=== PATIENT | male | born 1980 | race Caucasian/White ===

== ENCOUNTER 2024-04-22 12:23 | Emergency (ER) | payer BC, SELFPAY ==
--- NOTE | ~2024-04-22 | XR_ITS ---
EXAMINATION: XR chest 2V DATE: 04/22/2024 14:32 INDICATION: Cough and shortness of breath. TECHNIQUE: Frontal and lateral views of the chest were obtained. COMPARISON: Chest 2 views 07/01/2015 FINDINGS: There are airspace opacities in right lower lung zone. A calcified right lung nodule is con sistent with old granulomatous disease. No pleural effusion or pneumothorax. The heart size is normal . IMPRESSION: 1. Airspace opacities in right lower lung zone, consistent with atelectasis versus pneumonia. Reviewed, dictated and finalized at location A. IMPRESSION: 1. Airspace opacities in right lower lung zone, consistent with atelectasis eliazar rupa pneumonia.
[2024-04-22 12:37] VITALS: BP 150/86; PULSE 86; RESP 20; TEMP 36.6; O2SAT 97
[2024-04-22 14:11] VITALS: PULSE 82; RESP 16
[2024-04-22] MEDS: IPRATROPIUM 0.5 MG/ALBUTEROL SULFATE 2.5 MG AMPUL.NEB 3 ML INHALATION (14:11)
--- NOTE | 2024-04-22 14:16 | ED.URI ---
HPI - URI/Sore Throat General Chief Complaint: Upper Respiratory Infection Stated Complaint: cold symptoms, fever, sob Time Seen by Provider: 04/22/24 13:46 History of Present Illness HPI Narrative: Pt presents with fever and cough. Pt has been on amoxil fro 4 days but is getting worse. Fever up to 102 and cough worse. Related Data Allergies Allergy/AdvReac Type Severity Reaction Status Date / Time No Known Allergies Allergy Verified 04/22/24 14:06 Review of Systems Review of Systems: All systems reviewed & are unremarkable except as noted in HPI and below PMFSH Family History Family History Grandparent Hypertension Other Family history of heart disease in male family member before age 55 Family history of malignant neoplasm of breast Malignant neoplasm of prostate Social History Social History Smoking status: Never smoker Alcohol intake: never Exam Const: General: healthy appearing and no acute distress Nutritional Appearance: well nourished Orientation/consciousness: patient oriented x3 Limitations: no limitations Eyes: Conjunctivae: conjunctivae normal EOM: EOMs intact bilaterally Neck: Neck: normal visual inspection, no lymphadenopathy and no meningeal signs Chest: Chest palpation & inspection: normal inspection of the chest Resp: Auscultation: rales on the right Cardio: Rate: regular rate Rhythm: regular rhythm GI: GI Palp: Yes Soft to palpation and No Tenderness to palpation present (GI) Auscultation: normal bowel sounds Skin: General skin exam: normal color Rashes: no rashes Neuro: General: patient oriented x3, moves all extremities, no meningeal signs, no focal motor deficits and CN's II-XI intact bilaterally Speech: normal speech Extrem: General: normal to inspection and no clubbing, cyanosis or edema Psych: Mental Status: mental status grossly normal Affect: normal affect Attitude: cooperative Course Vital Signs Vital signs: Vital Signs Temperature 97.9 F 04/22/24 12:37 Pulse Rate 86 04/22/24 12:37 Respiratory Rate 20 04/22/24 12:37 Blood Pressure 150/86 H 04/22/24 12:37 Pulse Oximetry 97 04/22/24 12:37 Oxygen Delivery Room Air 04/22/24 12:37 Temperature 97.9 F 04/22/24 12:37 Pulse Rate 78 04/22/24 18:33 Respiratory Rate 17 04/22/24 18:33 Blood Pressure 122/78 04/22/24 18:33 Pulse Oximetry 98 04/22/24 18:33 Oxygen Delivery Room Air 04/22/24 14:18 MDM - URI/Sore Throat MDM Narrative Medical decision making narrative: pt presents with persistent fever and cough not responsive to antibiotic. will check some labs and cxr and swab for flu and covid and rsv and give neb. Differential Diagnosis Differential diagnosis: Likely upper respiratory infection, viral infection, bronchitis, influenza and other (pneumonia) Lab Data 04/22/24 14:20 04/22/24 14:20 Labs: Lab Results 04/22/24 04/22/24 Range/Units 14:20 15:14 WBC 10.6 H (4.5-10.0) K/mm3 RBC 4.72 (4.6-6.20) M/mm3 Hgb 14.3 (14.0-18.0) g/dL Hct 42.4 (42.0-52.0) % MCV 89.8 (80-100) fl MCH 30.3 (26-34) pg MCHC 33.7 (32-36) g/dl RDW 12.2 (11.5-14.5) % Plt Count 334 (150-375) k/mm3 MPV 10.0 (7.4-10.4) fl Immature Gran % (Auto) 0.4 (0-0.5) % Neut % (Auto) 64.5 (45.5-73.1) % Lymph % (Auto) 21.2 (18.3-44.2) % Converse % (Auto) 10.7 H (2.6-8.5) % Eos % (Auto) 2.4 (0-4.4) % Baso % (Auto) 0.8 (0.2-1.2) % Lymph # (Auto) 2.24 (0.9-3.2) K/mm3 Converse # (Auto) 1.1 H (0.1-0.6) K/mm3 Eos # (Auto) 0.3 (0-0.3) K/mm3 Baso # (Auto) 0.1 (0.0-0.1) K/mm3 Abs Immat Gran (auto) 0.04 H (0.00-0.031) K/mm3 Absolute Neuts (auto) 6.8 H (1.3-6.7) K/mm3 Absolute Nucleated RBC 0.000 (0.0-0.012) K/mm3 Nucleated RBC % 0.0 (0.0-0.2) % PT 13.2 (11.1-14.7)
[2024-04-22 14:18] VITALS: BP 123/90; PULSE 85; RESP 19; O2SAT 98
[2024-04-22 14:21] VITALS: PULSE 80; RESP 20
[2024-04-22 14:31] LABS: Basophils Absolute Auto 0.1 K/mm3 (0.0-0.1); Basophils Percent Auto 0.8 % (0.2-1.2); Eosinophils Absolute Auto 0.3 K/mm3 (0-0.3); Eosinophils Percent Auto 2.4 % (0-4.4); Hematocrit 42.4 % (42.0-52.0); Hemoglobin 14.3 g/dL (14.0-18.0); Immature Granulocyte Absolute 0.04 K/mm3 (0.00-0.031); Immature Granulocyte Percent A 0.4 % (0-0.5); Lymphocytes Absolute Auto 2.24 K/mm3 (0.9-3.2); Lymphocytes Percent Auto 21.2 % (18.3-44.2); Mean Corpuscular HGB Conc 33.7 g/dl (32-36); Mean Corpuscular Hemoglobin 30.3 pg (26-34); Mean Corpuscular Volume 89.8 fl (80-100); Monocytes Absolute Auto 1.1 K/mm3 (0.1-0.6); Monocytes Percent Auto 10.7 % (2.6-8.5); Neutrophils Absolute Auto 6.8 K/mm3 (1.3-6.7); Neutrophils Percent Auto 64.5 % (45.5-73.1); Platelet Count Result 334 k/mm3 (150-375); Red Blood Count 4.72 M/mm3 (4.6-6.20); Red Cell Distribution Width 12.2 % (11.5-14.5); White Blood Count 10.6 K/mm3 (4.5-10.0)
[2024-04-22 14:37] LABS: Lactic Acid Reflex 1.1 mmol/L (0.7-2.0)
[2024-04-22 14:41] LABS: Prothrombin Time 13.2 Seconds (11.1-14.7)
[2024-04-22 14:42] LABS: Partial Thromboplastin Time 26.6 Seconds (22.3-36.8)
[2024-04-22 14:56] LABS: Alanine Aminotransferase 46 U/L (6-50); Albumin Level 4.5 g/dL (3.5-5.1); Alkaline Phosphatase 64 U/L (38-126); Anion Gap 9 mmol/L (4-12); Aspartate Amino Transferase 48 U/L (17-59); Bilirubin,Total 0.4 mg/dL (0.2-1.3); Blood Urea Nitrogen 6 mg/dL (9-20); CRP 15.8 mg/dL (<1.0); Calcium 9.1 mg/dL (8.4-10.2); Carbon Dioxide 29 mmol/L (22-30); Chloride 102 mmol/L (98-107); Estimated CRCL calculation 104 ml/min; Estimated Glomerular Filt Rate > 60; Glucose 110 mg/dL (65-110); Potassium 3.7 mmol/L (3.4-5.0); Sodium 140 mmol/L (137-145)
[2024-04-22 16:01] LABS: Influenza A QL RT-PCR Negative (Negative); Influenza B QL RT-PCR Negative (Negative); RSV RNA, RT-PCR Negative (Negative); SARS-CoV-2 RNA PCR Negative (Negative)
[2024-04-22] MEDS: levoFLOXacin 750 MG/D5W 150 ML 750 MG/150 ML BAG 100 MG IVPB (16:47)
[2024-04-22 16:55] VITALS: PULSE 82; RESP 16; O2SAT 100
[2024-04-22 18:33] VITALS: BP 122/78; PULSE 78; RESP 17; O2SAT 98
== END 2024-04-22 18:34 | disposition home or self-care (01) ==
PROVIDERS: Emergency Provider Emergency Medicine; PCP Family Medicine
DX: J18.9 Pneumonia, unspecified organism (principal); Z20.822 Contact with and (suspected) exposure to COVID-19
CPT/HCPCS: 36415; 71046; 80053; 83605; 85025; 85610; 85730; 86140; 87040; 87637; 94640; 96365; 99284; J1956

== ENCOUNTER 2024-07-06 10:51 | Emergency (ER) | payer BC, SELFPAY ==
[2024-07-06 11:04] VITALS: BP 148/76; PULSE 84; RESP 18; TEMP 36.3; O2SAT 99
--- NOTE | 2024-07-06 11:49 | ED_ITS ---
HPI - Skin/Abscess/Foreign Bdy General Chief complaint: Wound/Laceration Stated complaint: wound Time Seen by Provider: 07/06/24 11:05 History of Present Illness HPI narrative: 44-year-old male presenting with concerns for abscess. States that he has been getting abscesses for the last several months. They have resolved with drainage and antibiotic ointment. He now has 1 on the back of his left calf and and feels that his lasted longer than the others. States that it is actually feeling better today. States that it was a lot more painful the last several days. States that it has been draining. No further complaints. Related Data Allergies Allergy/AdvReac Type Severity Reaction Status Date / Time No Known Allergies Allergy Verified 07/06/24 10:52 Review of Systems Review of Systems: All systems reviewed & are unremarkable except as noted in HPI and below PMFSH Family History Family History Grandparent Hypertension Other Family history of heart disease in male family member before age 55 Family history of malignant neoplasm of breast Malignant neoplasm of prostate Social History Social History Smoking status: Never smoker Alcohol intake: never Exam Narrative: GENERAL: Nontoxic, in no acute distress, pleasant and cooperative HEAD: Normocephalic, atraumatic. EYES: PERRLA and EOMI. ENT: Grossly unremarkable NECK: Supple. CHEST: No respiratory distress. HEART: Regular rate and rhythm EXTREMITIES: superficial abscess posterior left calf with purulent drainage and surrounding cellulitis SKIN: Warm, dry, as above NEURO: No focal deficits. Alert and oriented x3. PSYCH: Normal mood and affect. Course Vital Signs Vital signs: Vital Signs Temperature 97.4 F L 07/06/24 11:04 Pulse Rate 84 07/06/24 11:04 Respiratory Rate 18 07/06/24 11:04 Blood Pressure 148/76 H 07/06/24 11:04 Pulse Oximetry 99 07/06/24 11:04 Temperature 97.4 F L 07/06/24 11:04 Pulse Rate 84 07/06/24 11:04 Respiratory Rate 18 07/06/24 11:04 Blood Pressure 148/76 H 07/06/24 11:04 Pulse Oximetry 99 07/06/24 11:04 MDM - Skin/Abscess/Foreign Bdy [facility] Narrative Medical decision making narrative: 44-year-old male presenting with an abscess on his left leg. Vitals are stable. Exam remarkable for the above. Appears of a superficial abscess, it is spontaneously draining. Patient started on Keflex and doxycycline for the surrounding cellulitis. Discussed appropriate supportive care and close follow- up. Appropriate return precautions given. He is agreeable this plan. Discharged in stable condition. Differential Diagnosis Differential diagnosis: Likely abscess of skin or subcutaneous tissue and cellulitis Medical Records Attestation: I reviewed the patient's medical records. Critical Care Time Critical Care Time Critical Care Time: No Discharge Plan Discharge Clinical Impression: Abscess, Cellulitis Patient Disposition: Home, Self-Care Condition: Stable Instructions: Antibiotic Form, Cellulitis (ED), Abscess (ED) Additional Instructions: Please complete the antibiotics as prescribed. Please apply warm compresses to continue to encourage drainage. Follow-up closely with primary care. If your symptoms worsen or other concerning symptoms arise, please return to the ER. Patient Language: Slovenian Prescriptions: New cephalexin 500 mg capsule 500 mg PO Q6H 7 Days Qty: 28 0RF doxycycline hyclate 100 mg tablet 100 mg PO BID 7 Days Qty: 14 0RF No Action ondansetron HCl [Zofran] 4 mg tablet 4 mg PO Q8H PRN (Reason: nausea and vomiting) Qty: 30 0RF levofloxacin 750 mg tablet 750 mg PO DAILY Qty: 10 0RF albuterol sulfate 90 mcg/actuation aerosol powdr breath activated 2 inh inhalation QID PRN (Reason: shortness of breath) Qty: 1 0RF Follow-up/Referrals: Dr. Tee [Other] Jm Oneil MD [Primary Care Provider] -
[2024-07-06] MEDS: CEPHALEXIN 500 MG CAPSULE PO (12:09)
[2024-07-06] MEDS: DOXYCYCLINE HYCLATE 100 MG TABLET PO (12:10)
--- OUTSIDE RECORDS SUMMARY | 2024-07-10 06:37 | XMS_ITS | Clinical Summary ---
Author Organization [facility] Address [address] [address] Care Team Providers Care Editing Intern Name Role Phone Jm Oneil MD Primary Care Provider [phone] [facility] [place] [facility] and Associated Physician Practices is amultiple site organization consisting of ambulatory clinics and hospital sitesin [place], [place], [place] and [place]. This disclosure is being madepursuant to the Care Everywhere program and may not contain all information available regarding this patient. Last updated 18.[facility] Allergies No known active allergies Medications Be aware that medications may not be up to date on this document. Always verify current medications with the patient. No known medications Family History Medical History Relation Name Comments Cancer Paternal Grandfather stomach ? Relation Name Status Comments Paternal Grandfather Social History Tobacco Use Types Packs/Day Years Used Date Smoking Tobacco: Never Smokeless Tobacco: Never Alcohol Use Standard Drinks/Week Comments No 0 (1 standard drink = 0.6 oz pur e alcohol) Sex and Gender Information Value Date Recorded Sex Assigned at Not on file Gender Identity Not on file Sexual Orientation Not on file Last Filed Vital Signs Vital Sign Reading Time Taken Comments Blood Pressure - - Pulse - - Temperature - - Respiratory Rate - - Oxygen Saturation - - Inhaled Oxygen Concentration - - Weight 90.7 kg (200 lb) 04/29/2016 6:25 AM CDT Height 185.4 cm (6' 1 ) 04/29/2016 6:25 AM CDT Body Mass Index 26.39 04/29/2016 6:25 AM CDT Plan of Treatment Health Maintenance Due Date Last Done Comments HIV SCREENING 01/23/1995 HEPATITIS C SCREENING 01/19/1998 DTAP/TDAP/TD VACCINES (1 - Tdap) 01/23/1999 HEPATITIS B VACCINE (1 of 3 - 19+ 3-dose series) 01/23/1999 LIPID TESTING 04/29/2021 04/29/2016 DEPRESSION SCREENING 07/24/2023 COVID-19 VACCINE (1 - 2023-2 5 season) 2024 INFLUENZA VACCINE (#1) 2024 ZOSTER VACCINE (1 of 2) 01/23/2030 HIB VACCINE Aged Out No longer eligi ble based on patient's age to complete this topic HPV VACCINE Aged Out No longer eligi ble based on patient's age to complete this topic MENINGOCOCCAL VACCINE Aged Out No christin marco eligible based on patient's age to complete this topic PNEUMOCOCCAL VACCINE Aged Out No long er eligible based on patient's age to complete this topic Procedures Procedure Name Priority Date/Time Associated Diagnosis Comments LIPID PROFILE Routine 04/29/2016 6:10 AM CDT Abdominal pain, unspecified location from Last 3 Months or Most Recently Relevant to Health Maintenance Results * (ABNORMAL) LIPID PROFILE (04/29/2016 6:10 AM CDT) [facility] Cholesterol 154 <200 mg/dL 04/29/2016 7:07 AM CDT [facility] Triglycerides 168(H) <150 mg/dL 04/29/2016 7:07 AM CDT [facility] HDL Cholesterol 33(L) >40 mg/dL 04/29/2016 7:07 AM CDT [facility] LDL Calculated 87 <130 mg/dL 04/29/2016 7:07 AM CDT [facility] VLDL Calculated 34(H) <=30 mg/dL 04/29/2016 7:07 AM CDT [facility] Chol HDL Ratio 4.7(H) <4.5 04/29/2016 7:07 AM CDT [facility] LDL/HDL Ratio 2.6 <5.0 04/29/2016 7:07 AM CDT [facility] Blood BLOOD SPECIMEN / Unknown Lab Venipuncture / Unknown 04/29/2016 6:10 AM CDT 04/29/2016 6:31 AM CDT Everardo Weiss MD LAB - CHEMISTRY O RDERABLES [facility] [address] [place] [address] from Last 3 Months or Most Recently Relevant to Health Maintenance Care Teams Editing Intern Relationship Specialty Start Date End Date Jm Oneil MD PCP - General Family Medicine 04/27/16
--- OUTSIDE RECORDS SUMMARY | 2024-07-10 06:37 | XMS_ITS | Clinical Summary ---
Author Organization [facility] Address [address], [facility] [address] [place] [address] Phone Care Team Providers Care Air Conditioning Mechanic Name Role Phone Kashif Montgomery MD Unavailable [phone] Jm Oneil MD Primary Care Provider [phone] Allergies Active Allergy Reactions Criticality Noted Date Comments Other Other (see Comments) 08/25/2016 SEASONAL ALLERGIES GRASS, MOLD, ETC Medications HYDROcodone-acet aminophen (NORCO) 5-325 MG Tablet Take 1-2 Tabs by mouth every 6 hours as needed. 40 Tab 0 09/02/2016 Active docusate sodium (COLACE) 100 MG Capsule Take 1 Cap by mouth 2 times daily as needed for Constipatio n. 60 Cap 3 09/02/2016 Active Active Problems Problem Noted Date Diagnosed Date Delayed gastric emptying 08/22/2016 Family History Medical History Relation Name Comments Hypertension Maternal Grandmother Hypertension Mother Cancer Paternal Grandfather Relation Name Status Comments Father Alive Maternal Grandmother Mother Alive Paternal Grandfather Social History Tobacco Use Types Packs/Day Years Used Date Smoking Tobacco: Never Smokeless Tobacco: Never Alcohol Use Standard Drinks/Week Comments No 0 (1 standard drink = 0.6 oz pur e alcohol) Sex and Gender Information Value Date Recorded Sex Assigned at Not on file Legal Sex Male 9:37 PM CDT Gender Identity Not on file Sexual Orientation Not on file Last Filed Vital Signs Vital Sign Reading Time Taken Comments Blood Pressure 120/80 09/02/2016 1:10 PM WAREHOUSE DELIVERY MANAGER Pulse 74 09/02/2016 1:10 PM WAREHOUSE DELIVERY MANAGER Temperature 35.6 ??C (96.1 ??F) 09/02/2016 1:10 PM CS T Respiratory Rate 16 09/02/2016 1:10 PM WAREHOUSE DELIVERY MANAGER Oxygen Saturation 97% 09/02/2016 1:10 PM WAREHOUSE DELIVERY MANAGER Inhaled Oxygen Concentration - - Weight 88.5 kg (195 lb) 08/25/2016 1:00 PM WAREHOUSE DELIVERY MANAGER Height 185.4 cm (6' 1 ) 08/25/2016 1:00 PM WAREHOUSE DELIVERY MANAGER Body Mass Index 25.73 08/25/2016 1:00 PM WAREHOUSE DELIVERY MANAGER Plan of Treatment Health Maintenance Due Date Last Done Comments Hepatitis C Virus (HCV) Screening 1980 TdaP Immunization 1980 Hepatitis B Immunization (1 of 3 - 19+ 3-dose series) 01/23/1999 Influenza Immunization (#1) 2024 SARS-COV-2 Immunization ( - season) 2024 Respiratory Syncytial Virus (RSV) Immunization (Adult) (1 - 1-dose 75+ series) 01/23/2055 Meningococcal Immunization (ACWY) Aged Out No longer eligible based on patient's age to complete this topic Pneumococcal Immunization Combined Aged Out No longer eligible based on patient's age to complete this topic Rotavirus Immunization Aged Out No lo nger eligible based on patient's age to complete this topic Care Teams Air Conditioning Mechanic Relationship Specialty Start Date End Date Jm Oneil MD [address] [place] [address] PCP - General Family Medicine 08/11/16 Kashif Montgomery MD [address] [address] General Surgery 08/10/16
--- OUTSIDE RECORDS SUMMARY | 2024-07-10 06:37 | XMS_ITS | Encounter Summary ---
Author Organization [facility] Address [address] [address] Care Team Providers Care Electrical And Instrumentation Manager Name Role Phone Jm Oneil MD Primary Care Provider [phone] Reason for Visit * Auth/Cert Specialty Diagnoses / Procedures Referred By Sahil jeong Referred To Contact Diagnoses Abdominal bloating Abdominal bloating Procedures BREATH HYDROGEN TEST Referral ID Status Reason Start Date Expiration Date Visits Re quested Visits Authorized [id number] 1 1 Encounter Details Date Type Department Care Team (Late st Contact Info) Description 04/29/2016 6:30 AM CDT - 04/29/2016 7:00 AM CDT Surgery [facility] [address] [place] [id number] Procedure, Nursing G_I BREATH HYDROGEN TEST FOR LACTULOSE Surgery Details Date/Time Status Location OR Service Patient Class Case Class Case Type Trauma Case? 04/29/2016 6:30 AM Posted [facility] GI Lab Gastroenterology Surgery Day Care Elective > 5 days Panel 1 Procedure LRB Anes Op Region Wound Class Comments BREATH HYDROGEN TEST FOR LACTULOSE None Clean Contaminated Surgeon Surgeon Role Service Panel Procedure, Nursing G_I Primary Gastroenterology [address] RILEY'S REQUEST documented in this encounter Social History Tobacco Use Types Packs/Day Years Used Date Smoking Tobacco: Never Smokeless Tobacco: Never Alcohol Use Standard Drinks/Week Comments No 0 (1 standard drink = 0.6 oz pur e alcohol) Sex and Gender Information Value Date Recorded Sex Assigned at Not on file Gender Identity Not on file Sexual Orientation Not on file documented as of this encounter Last Filed Vital Signs Vital Sign Reading Time Taken Comments Blood Pressure - - Pulse - - Temperature - - Respiratory Rate - - Oxygen Saturation - - Inhaled Oxygen Concentration - - Weight 90.7 kg (200 lb) 04/29/2016 6:25 AM CDT Height 185.4 cm (6' 1 ) 04/29/2016 6:25 AM CDT Body Mass Index 26.39 04/29/2016 6:25 AM CDT documented in this encounter Functional Status Functional Status Response Date of Assess ment Is person deaf or have serious hearing difficult y? No 04/29/2016 Is person blind or have serious difficulty seein g? No 04/29/2016 Does person have serious dif ficulty walking/climbing stairs? No 04/29/2016 Does person have difficulty dressing/bathing? No 04/29/2016 Does person have difficulty doing errands alone? No 04/29/2016 Cognitive Status Response Date of Assessm ent Does person have difficulty concentrating/remembering/making decisions? No 04/29/2016 documented as of this encounter Plan of Treatment Scheduled Orders Name Type Priority Associated Diagnoses Orde r Schedule HYDROGEN BREATH TEST GI Routine ONCE for 1 Occurrences starting 04/29/2016 until 04/29/2016 documented as of this encounter Procedures Procedure Name Priority Date/Time Associated Diagnosis Comments BREATH HYDROGEN/METHANE TEST 04/29/2016 6:18 AM CDT Abdominal bloating Special Needs PER DR. RILEY'S REQUEST documented in this encounter Visit Diagnoses Diagnosis Abdominal bloating Flatulence, eructation, and gas pain documented in this encounter Care Teams Electrical And Instrumentation Manager Relationship Specialty Start Date End Date Jm Oneil MD PCP - General Family Medicine 04/27/16 documented as of this encounter
--- OUTSIDE RECORDS SUMMARY | 2024-07-10 06:37 | XMS_ITS | Patient Health Summary ---
Author Organization [facility] [employer] Address [address] [place] [address] Care Team Providers Care Warp Knitter Helper Name Role Phone Jm Oneil MD Primary Care Provider [phone] Note from [facility] [employer] [facility] [employer],non-owned Affiliates and Associated Physician Practices is amultiple site organization consisting of ambulatory clinics and hospital sitesin [place], [place], [place] and [place]. This disclosure is being madepursuant to the Care Everywhere program and may not contain all information available regarding this patient. Last updated 18.[facility] [employer] Allergies No known active allergies Medications Be aware that medications may not be up to date on this document. Always verify current medications with the patient. No known medications Social History Tobacco Use Types Packs/Day Years [...] Mass Index 26.39 04/29/2016 6:25 AM CDT Procedures * BREATH HYDROGEN/METHANE TEST(Performed 04/29/2016) Performed for Abdominal bloating * TSH(Performed 04/29/2016) Performed for Abdominal pain, unspecified location * T4 TOTAL(Performed 04/29/2016) Performed for Abdominal pain, unspecified location * C-REACTIVE PROTEIN(Performed 04/29/2016) Performed for Abdominal pain, unspecified location * LIPID PROFILE(Performed 04/29/2016) Performed for Abdominal pain, unspecified location * COMPREHENSIVE METABOLIC PANEL(Performed 04/29/2016) Performed for Abdominal pain, unspecified location * CBC W AUTO DIFFERENTIAL(Performed 04/29/2016) Performed for Abdominal pain, unspecified location Results * (ABNORMAL) C-REACTIVE PROTEIN (04/29/2016 6:10 AM CDT) [facility] C-Reactive Protein 0.62(H) <0.30 mg/dL 04/29/2016 7:07 AM CDT [facility] Blood BLOOD SPECIMEN / Unknown Lab Venipuncture / Unknown 04/29/2016 6:10 AM CDT 04/29/2016 6:31 AM CDT Everardo Weiss MD LAB - CHEMISTRY O RDERABLES Performing Organization Address [facility]/State/[facility] Co de Phone Number [facility] [address] [place] [address] * (ABNORMAL) CBC W AUTO DIFFERENTIAL (04/29/2016 6:10 AM CDT) [facility] WBC 8.5 4.4 - 10.7 x10E9/L 04/29/2016 6:43 AM CDT [facility] WBC Corrected x10E9/L 04/29/2016 6:43 AM CDT [facility] RBC 5.26 3.80 - 5.40 x10E12/L 04/29/2016 6:43 AM CDT [facility] Hemoglobin 15.2 12.0 - 17.6 gm/dL 04/29/2016 6:43 AM CDT [facility] Hematocrit 45.4 35.2 - 51.7 % 04/29/2016 6:43 AM CDT [facility] MCV 86.3 80.7 - 98.3 fl 04/29/2016 6:43 AM CDT [facility] MCH 28.9 26.7 - 34.0 pg 04/29/2016 6:43 AM CDT [facility] MCHC 33.5 30.8 - 35.9 gm/dL 04/29/2016 6:43 AM CDT [facility] Platelet Count 319 153 - 416 x10E9/L 04/29/2016 6:43 AM T [facility] RDW-CV 12.5 12.1 - 14.9 % 04/29/2016 6:43 AM T [facility] MPV 10.5 9.4 - 12.9 fl 04/29/2016 6:43 AM [facility] Neutrophils % 47.9 44.0 - 73.0 % 04/29/2016 6:43 AM [facility] Lymphocytes % 37.2 20.0 - 43.0 % 04/29/2016 6:43 AM [facility] Monocytes % 10.7 5.0 - 13.0 % 04/29/2016 6:43 AM [facility] Eosinophils % 2.7 0.0 - 6.0 % 04/29/2016 6:43 AM [facility] Basophils % 1.1 0.0 - 2.0 % 04/29/2016 6:43 AM [facility] Immature Granulocytes 0.4 0 - 1 % 04/29/2016 6:43 AM [facility] Neutrophil Absolute 4.07 2.01 - 7.14 x10E9/L 04/29/2016 6:43 AM [facility] Lymphocytes Absolute 3.16 1.07 - 3.94 x10E9/L 04/29/2016 6:43 AM T [facility] Monocytes Absolute 0.91 0.26 - 1.07 x10E9/L 04/29/2016 6:43 AM [facility] Eosinophils Absolute 0.23 0 - 0.47 x10E9/L 04/29/2016 6:43 AM [facility] Basophils Absolute 0.09(H) 0 - 0.08 x10E9/L 04/29/2016 6:43 AM [facility] Immature Granulocytes Absolute 0.03 0.00 - 0.06 x10E9/L 04/29/2016 6:43 AM [facility] nRBC Auto 0 /100 WBC 04/29/2016 6:43 AM [facility] Blood BLOOD SPECIMEN / Unknown Lab Venipuncture / Unknown 04/29/2016 6:10 AM CDT 04/29/2016 6:31 AM CDT Everardo Weiss MD LAB - HEMATOLOGY ORDERABLES [facility] [address] [phone] * COMPREHENSIVE METABOLIC PANEL (04/29/2016 6:10 AM CDT) Glucose 94 74 - 106 mg/dL 04/29/2016 7:07 AM CDT [facility] Sodium 138 136 - 145 mmol/L 04/29/2016 7:07 AM CDT [facility] Potassium 3.9 3.5 - 5.1 mmol/L 04/29/2016 7:07 AM CDT [facility] Chloride 104 98 - 107 mmol/L 04/29/2016 7:07 AM CDT [facility] CO2 29 22 - 31 mmol/L 04/29/2016 7:07 AM CDT [facility] Calcium 8.8 8.5 - 10.1 mg/dL 04/29/2016 7:07 AM T [facility] Anion Gap 5 5 - 20 mmol/L 04/29/2016 7:07 AM CDT [facility] BUN 14 7 - 21 mg/dL 04/29/2016 7:07 AM CDT [facility] Creatinine 1.00 0.50 - 1.30 mg/dL 04/29/2016 7:07 AM CDT [facility] Alkaline Phosphatase 73 38 - 126 U/L 04/29/2016 7:07 AM CDT [facility] ALT 40 13 - 61 U/L 04/29/2016 7:07 AM CDT [facility] AST 24 5 - 40 U/L 04/29/2016 7:07 AM CDT [facility] Protein Total 8.0 6.4 - 8.2 gm/dL 04/29/2016 7:07 AM CDT [facility] Albumin 3.9 3.4 - 5.0 gm/dL 04/29/2016 7:07 AM CDT [facility] Bilirubin Total 0.8 0.2 - 1.0 mg/dL 04/29/2016 7:07 AM CDT [facility] eGFR by MDRD >60 >60 mL/min/1.7 3m2 04/29/2016 7:07 AM CDT [facility] eGFR by MDRD >60 >60 mL/min/1.7 3m2 04/29/2016 7:07 AM CDT [facility] Blood BLOOD SPECIMEN / Unknown Lab Venipuncture / Unknown 04/29/2016 6:10 AM CDT 04/29/2016 6:31 AM CDT Everardo Weiss MD LAB - CHEMISTRY O RDBEENA Performing Organization Address [facility] Co de Phone Number [facility] [address] [place], [place] [phone] * TSH (04/29/2016 6:10 AM CDT) Pathologist [facility] TSH 1.56 0.358 - 3.740 uIU/mL 04/29/2016 7:07 AM CDT [facility] Blood BLOOD SPECIMEN / Unknown Lab Venipuncture / Unknown 04/29/2016 6:10 AM CDT 04/29/2016 6:31 AM CDT Everardo Weiss MD LAB - CHEMISTRY O RDBEENA Performing Organization Address [facility] de Phone Number [facility] [address] [place], [place] [phone] * T4 TOTAL (04/29/2016 6:10 AM CDT) Pathologist [facility] T4 Total 10.1 4.7 - 13.3 ug/dL 04/29/2016 9:17 AM CDT [facility] Blood BLOOD SPECIMEN / Unknown Lab Venipuncture / Unknown 04/29/2016 6:10 AM CDT 04/29/2016 6:31 AM CDT Everardo Weiss MD LAB - CHEMISTRY O RDERACHERELLE Performing Organization Address [facility] de Phone Number [facility] [address] [place] [phone] * (ABNORMAL) LIPID PROFILE (04/29/2016 6:10 AM CDT) Pathologist [facility] Cholesterol 154 <200 mg/dL 04/29/2016 7:07 AM CDT [facility] Triglycerides 168(H) <150 mg/dL 04/29/2016 7:07 AM CDT [facility] HDL Cholesterol 33(L) >40 mg/dL 04/29/2016 7:07 AM CDT [facility] LDL Calculated 87 <130 mg/dL 04/29/2016 7:07 AM CDT [facility] VLDL Calculated 34(H) <=30 mg/dL 04/29/2016 7:07 AM CDT [facility] Chol HDL Ratio 4.7(H) <4.5 04/29/2016 7:07 AM CDT [facility] LDL/HDL Ratio 2.6 <5.0 04/29/2016 7:07 AM CDT [facility] Blood BLOOD SPECIMEN / Unknown Lab Venipuncture / Unknown 04/29/2016 6:10 AM CDT 04/29/2016 6:31 AM CDT Everardo Weiss MD LAB - CHEMISTRY O RDERABLES Performing Organization Address City/State/[facility] Co de Phone Number [facility] [address] [place] [address] Care Teams Warp Knitter Helper Relationship Specialty Start Date End Date Jm Oneil MD PCP - General Family Medicine 04/27/16
--- OUTSIDE RECORDS SUMMARY | 2024-07-10 06:37 | XMS_ITS | Encounter Summary ---
Author Organization [facility] Address [address] [place] [address] Care Team Providers Care Fbi Field Agent Name Role Phone Jm Oneil MD Primary Care Provider [phone] Reason for Visit * Auth/Cert Specialty Diagnoses / Procedures Referred By Sahil jeong Referred To Contact Diagnoses Abdominal bloating Abdominal bloating Procedures BREATH HYDROGEN TEST Referral ID Status Reason Start Date Expiration Date Visits Re quested Visits Authorized [id number] 1 1 Encounter Details Date Type Department Care Team (Latest Contact Info) Description 04/29/2016 6:12 AM CDT - 04/29/2016 9:36 AM CDT Hospital Encounter [facility] [address] [place] [address] Silvia Spencer MD [facility] [place] [id number] Surgery General Discharge Disposition: Home or Self Care Social History Tobacco Use Types Packs/Day Years [...] REQUEST documented in this encounter Visit Diagnoses Not on filedocumented in this encounter Care Teams Fbi Field Agent Relationship Specialty Start Date End Date Jm Oneil MD PCP - General Family Medicine 04/27/16 documented as of this encounter
--- OUTSIDE RECORDS SUMMARY | 2024-07-10 06:37 | XMS_ITS | Referral Summary ---
Author Organization [facility] [employer] Address [address] [place] [address] Care Team Providers Care Special Education Curriculum Specialist Name Role Phone Jm Oneil MD Primary Care Provider [phone] [facility] [employer],non-owned Affiliates and Associated Physician Practices is amultiple site organization consisting of ambulatory clinics and hospital sitesin [place], [place], [place] and [place]. This disclosure is being madepursuant to the Care Everywhere program and may not contain all information available regarding this patient. Last updated 18.[facility] [employer] Allergies No known active allergies Medications Be [...] Mass Index 26.39 04/29/2016 6:25 AM CDT Functional Status Functional Status Response Date of [...] person have difficulty concentrating/remembering/making decisions? No 04/29/2016 Plan of Treatment Not on file Procedures Procedure Name Priority Date/Time Associated Diagnosis Comments LIPID PROFILE Routine 04/29/2016 6:10 AM CDT Abdominal pain, unspecified location from Last 3 Months or Most Recently Relevant to Health Maintenance Results * (ABNORMAL) LIPID PROFILE (04/29/2016 6:10 AM CDT) [facility] Cholesterol 154 <200 mg/dL 04/29/2016 7:07 AM CDT [facility] Triglycerides 168(H) <150 mg/dL 04/29/2016 7:07 AM CDT [facility] HDL Cholesterol 33(L) >40 mg/dL 04/29/2016 7:07 AM CDT [facility] LDL Calculated 87 <130 mg/dL 04/29/2016 7:07 AM CDT [facility] VLDL Calculated 34(H) <=30 mg/dL 04/29/2016 7:07 AM CDT [facility] Chol HDL Ratio 4.7(H) <4.5 04/29/2016 7:07 AM CDT [facility] LDL/HDL Ratio 2.6 <5.0 04/29/2016 7:07 AM CDT [facility] Blood BLOOD SPECIMEN / Unknown Lab Venipuncture / Unknown 04/29/2016 6:10 AM CDT 04/29/2016 6:31 AM CDT Everardo Weiss MD LAB - CHEMISTRY O RDERABLES [facility] [address] [place] [address] from Last 3 Months or Most Recently Relevant to Health Maintenance Care Teams Special Education Curriculum Specialist Relationship Specialty Start Date End Date Jm Oneil MD PCP - General Family Medicine 04/27/16
--- OUTSIDE RECORDS SUMMARY | 2024-07-10 06:37 | XMS_ITS | Encounter Summary ---
Author Organization [facility] Address [address] [facility] [place] [address] Care Team Providers Care Traffic Representative Name Role Phone Jm Oneil MD Primary Care Provider [phone] Reason for Visit * Auth/Cert Specialty Diagnoses / Procedures Referred By Sahil jeong Referred To Contact Diagnoses Abdominal bloating Abdominal bloating Procedures BREATH HYDROGEN TEST Referral ID Status Reason Start Date Expiration Date Visits Re quested Visits Authorized [id number] 1 1 Encounter Details Date Type Department Care Team (Latest Contact Info) Description 04/29/2016 5:50 AM CDT - 04/29/2016 6:11 AM CDT Hospital Encounter [facility] [address] [place] [address] Everardo Weiss MD [address] [place] [address] Discharge Disposition: Home or Self Care Social [...] on file documented as of this encounter Functional Status Functional Status Response [...] as of this encounter Plan of Treatment Not on file documented as of this encounter Procedures Procedure Name Priority Date/Time Associated Diagnosis Comments C-REACTIVE PROTEIN Routine 04/29/2016 6: 10 AM CDT Abdominal pain, unspecified location CBC W AUTO DIFFERENTIAL Routine 04/29/2016 6:10 AM CDT Abdominal pain, unspecified location COMPREHENSIVE METABOLIC PANEL Routine 04/29/2016 6:10 AM CDT Abdominal pain, unspecified location TSH Routine 04/29/2016 6:10 AM CDT Abdominal pain, unspecified location T4 TOTAL Routine 04/29/2016 6:10 AM CDT Abdominal pain, unspecified location LIPID PROFILE Routine 04/29/2016 6:10 AM CDT Abdominal pain, unspecified location documented in this encounter Results * TSH (04/29/2016 6:10 AM CDT) TSH 1.56 0.358 - 3.740 uIU/mL 04/29/2016 7:07 AM CDT [facility] Blood BLOOD SPECIMEN / Unknown Lab Venipuncture / Unknown 04/29/2016 6:10 AM CDT 04/29/2016 6:31 AM CDT Everardo Weiss MD LAB - CHEMISTRY O RDERABLES [facility] [address] [place] [address] * T4 TOTAL (04/29/2016 6:10 AM CDT) T4 Total 10.1 4.7 - 13.3 ug/dL 04/29/2016 9:17 AM CDT [facility] Blood BLOOD SPECIMEN / Unknown Lab Venipuncture / Unknown 04/29/2016 6:10 AM CDT 04/29/2016 6:31 AM CDT Everardo Weiss MD LAB - CHEMISTRY O DESI Performing Organization Address [facility] Co de Phone Number [facility] [address] [place] [address] * (ABNORMAL) C-REACTIVE PROTEIN (04/29/2016 6:10 AM CDT) C-Reactive Protein 0.62(H) <0.30 mg/dL 04/29/2016 7:07 AM CDT [facility] Blood BLOOD SPECIMEN / Unknown Lab Venipuncture / Unknown 04/29/2016 6:10 AM CDT 04/29/2016 6:31 AM CDT Everardo Weiss MD LAB - CHEMISTRY O DESI Performing Organization Address [facility] de Phone Number [facility] [address] [place] [address] * (ABNORMAL) LIPID PROFILE (04/29/2016 6:10 AM CDT) Cholesterol 154 <200 mg/dL 04/29/2016 7:07 AM CDT [facility] Triglycerides 168(H) <150 mg/dL 04/29/2016 7:07 AM CDT [facility] HDL Cholesterol 33(L) >40 mg/dL 04/29/2016 7:07 AM CDT [facility] LDL Calculated 87 <130 mg/dL 04/29/2016 7:07 AM CDT [facility] VLDL Calculated 34(H) <=30 mg/dL 04/29/2016 7:07 AM CDT [facility] Chol HDL Ratio 4.7(H) <4.5 04/29/2016 7:07 AM CDT [facility] LDL/HDL Ratio 2.6 <5.0 04/29/2016 7:07 AM CDT [facility] Blood BLOOD SPECIMEN / Unknown Lab Venipuncture / Unknown 04/29/2016 6:10 AM CDT 04/29/2016 6:31 AM CDT Everardo Weiss MD LAB - CHEMISTRY O RDERABLES [facility] [address] [place] [address] * COMPREHENSIVE METABOLIC PANEL (04/29/2016 6:10 AM CDT) Glucose 94 74 - 106 mg/dL 04/29/2016 7:07 AM CDT [facility] Sodium 138 136 - 145 mmol/L 04/29/2016 7:07 AM CDT [facility] Potassium 3.9 3.5 - 5.1 mmol/L 04/29/2016 7:07 AM CDT [facility] Chloride 104 98 - 107 mmol/L 04/29/2016 7:07 AM CDT [facility] CO2 29 22 - 31 mmol/L 04/29/2016 7:07 AM [facility] Calcium 8.8 8.5 - 10.1 mg/dL 04/29/2016 7:07 AM [facility] Anion Gap 5 5 - 20 mmol/L 04/29/2016 7:07 AM CDT [facility] BUN 14 7 - 21 mg/dL 04/29/2016 7:07 AM [facility] Creatinine 1.00 0.50 - 1.30 mg/dL 04/29/2016 7:07 AM [facility] Alkaline Phosphatase 73 38 - 126 U/L 04/29/2016 7:[facility] ALT 40 13 - 61 U/L 04/29/2016 7:07 [facility] AST 24 5 - 40 U/L 04/29/2016 7:07 AM [facility] Protein Total 8.0 6.4 - 8.2 gm/dL 04/29/2016 7:07 AM [facility] Albumin 3.9 3.4 - 5.0 gm/dL 04/29/2016 7:07 AM CDT [facility] Bilirubin Total 0.8 0.2 - 1.0 mg/dL 04/29/2016 7:07 AM [facility] eGFR by MDRD >60 >60 mL/min/1.7 3m2 04/29/2016 7:07 AM CDT [facility] eGFR by MDRD >60 >60 mL/min/1.7 3m2 04/29/2016 7:07 AM CDT [facility] Blood BLOOD SPECIMEN / Unknown Lab Venipuncture / Unknown 04/29/2016 6:10 AM CDT 04/29/2016 6:31 AM CDT Everardo Weiss MD LAB - CHEMISTRY O RDERABLES Performing Organization Address City/State/[facility] Co de Phone Number [facility] [address] [place] [address] * (ABNORMAL) CBC W AUTO DIFFERENTIAL (04/29/2016 6:10 AM CDT) WBC 8.5 4.4 - 10.7 x10E9/L 04/29/2016 6:43 AM CDT [facility] WBC Corrected x10E9/L 04/29/2016 6:43 AM CDT [facility] RBC 5.26 3.80 - 5.40 x10E12/L 04/29/2016 6:43 AM CDT [facility] Hemoglobin 15.2 12.0 - 17.6 gm/dL 04/29/2016 6:43 AM CDT [facility] Hematocrit 45.4 35.2 - 51.7 % 04/29/2016 6:43 AM CDT [facility] MCV 86.3 80.7 - 98.3 fl 04/29/2016 6:43 AM CDT [facility] MCH 28.9 26.7 - 34.0 pg 04/29/2016 6:43 AM CDT [facility] MCHC 33.5 30.8 - 35.9 gm/dL 04/29/2016 6:43 AM CDT [facility] Platelet Count 319 153 - 416 x10E9/L 04/29/2016 6:43 AM CDT [facility] RDW-CV 12.5 12.1 - 14.9 % 04/29/2016 6:43 AM CDT [facility] MPV 10.5 9.4 - 12.9 fl 04/29/2016 6:43 AM CDT [facility] Neutrophils % 47.9 44.0 - 73.0 % 04/29/2016 6:43 AM CDT [facility] Lymphocytes % 37.2 20.0 - 43.0 % 04/29/2016 6:43 AM CDT [facility] Monocytes % 10.7 5.0 - 13.0 % 04/29/2016 6:43 AM CDT [facility] Eosinophils % 2.7 0.0 - 6.0 % 04/29/2016 6:43 AM CDT [facility] Basophils % 1.1 0.0 - 2.0 % 04/29/2016 6:43 AM CDT [facility] Immature Granulocytes 0.4 0 - 1 % 04/29/2016 6:43 AM CDT [facility] Neutrophil Absolute 4.07 2.01 - 7.14 x10E9/L 04/29/2016 6:43 AM CDT [facility] Lymphocytes Absolute 3.16 1.07 - 3.94 x10E9/L 04/29/2016 6:43 AM CDT [facility] Monocytes Absolute 0.91 0.26 - 1.07 x10E9/L 04/29/2016 6:43 AM CDT [facility] Eosinophils Absolute 0.23 0 - 0.47 x10E9/L 04/29/2016 6:43 AM CDT [facility] Basophils Absolute 0.09(H) 0 - 0.08 x10E9/L 04/29/2016 6:43 AM CDT [facility] Immature Granulocytes Absolute 0.03 0.00 - 0.06 x10E9/L 04/29/2016 6:43 AM CDT [facility] nRBC Auto 0 /100 WBC 04/29/2016 6:43 AM CDT [facility] Blood BLOOD SPECIMEN / Unknown Lab Venipuncture / Unknown 04/29/2016 6:10 AM CDT 04/29/2016 6:31 AM CDT Everardo Weiss MD LAB - HEMATOLOGY ORDERABLES [facility] [address] [place] [address] documented in this encounter Visit Diagnoses Diagnosis Abdominal pain, unspecified location- Primary documented in this encounter Care Teams Traffic Representative Relationship Specialty Start Date End Date Jm Oneil MD PCP - General Family Medicine 04/27/16 documented as of this encounter
--- OUTSIDE RECORDS SUMMARY | 2024-07-10 09:27 | XMS_ITS | Patient Health Summary ---
Author Organization [facility] Address [address] [place] [address] Care Team Providers Care Oil Dispenser Name Role Phone Jm Oneil MD Primary Care Provider Note from [facility],non-owned Affiliates and Associated Physician Practices is amultiple site organization consisting of ambulatory clinics and hospital sitesin [place], [place], [place] and [place]. This disclosure is being madepursuant to the Care Everywhere program and may not contain all information available regarding this patient. Last updated 18.[facility] Allergies No known active allergies Medications Be [...] (ABNORMAL) C-REACTIVE PROTEIN (04/29/2016 6:10 AM CDT) [facility] C-Reactive Protein 0.62(H) <0.30 mg/dL 04/29/2016 7:07 AM CDT [facility] Blood BLOOD SPECIMEN / Unknown Lab Venipuncture / Unknown 04/29/2016 6:10 AM CDT 04/29/2016 6:31 AM CDT Everardo Weiss MD LAB - CHEMISTRY O RDERABLES Performing Organization Address [facility]/State/[facility] Co de Phone Number [facility] [address] [place] [address] * (ABNORMAL) CBC W AUTO DIFFERENTIAL (04/29/2016 6:10 AM CDT) [facility] WBC 8.5 4.4 - 10.7 x10E9/L 04/29/2016 6:43 AM CDT [facility] WBC Corrected x10E9/L 04/29/2016 6:43 AM CDT [facility] RBC 5.26 3.80 - 5.40 x10E12/L 04/29/2016 6:43 AM CDT [facility] Hemoglobin 15.2 12.0 - 17.6 gm/dL 04/29/2016 6:43 AM CDT [facility] Hematocrit 45.4 35.2 - 51.7 % 04/29/2016 6:43 AM CDT [facility] MCV 86.3 80.7 - 98.3 fl 04/29/2016 6:43 AM CDT [facility] MCH 28.9 26.7 - 34.0 pg 04/29/2016 6:43 AM CDT [facility] MCHC 33.5 30.8 - 35.9 gm/dL 04/29/2016 6:43 AM CDT [facility] Platelet Count 319 153 - 416 x10E9/L 04/29/2016 6:43 AM T [facility] RDW-CV 12.5 12.1 - 14.9 % 04/29/2016 6:43 AM T [facility] MPV 10.5 9.4 - 12.9 fl 04/29/2016 6:43 AM [facility] Neutrophils % 47.9 44.0 - 73.0 % 04/29/2016 6:43 AM [facility] Lymphocytes % 37.2 20.0 - 43.0 % 04/29/2016 6:43 AM [facility] Monocytes % 10.7 5.0 - 13.0 % 04/29/2016 6:43 AM [facility] Eosinophils % 2.7 0.0 - 6.0 % 04/29/2016 6:43 AM [facility] Basophils % 1.1 0.0 - 2.0 % 04/29/2016 6:43 AM [facility] Immature Granulocytes 0.4 0 - 1 % 04/29/2016 6:43 AM [facility] Neutrophil Absolute 4.07 2.01 - 7.14 x10E9/L 04/29/2016 6:43 AM [facility] Lymphocytes Absolute 3.16 1.07 - 3.94 x10E9/L 04/29/2016 6:43 AM T [facility] Monocytes Absolute 0.91 0.26 - 1.07 x10E9/L 04/29/2016 6:43 AM [facility] Eosinophils Absolute 0.23 0 - 0.47 x10E9/L 04/29/2016 6:43 AM [facility] Basophils Absolute 0.09(H) 0 - 0.08 x10E9/L 04/29/2016 6:43 AM [facility] Immature Granulocytes Absolute 0.03 0.00 - 0.06 x10E9/L 04/29/2016 6:43 AM [facility] nRBC Auto 0 /100 WBC 04/29/2016 6:43 AM [facility] Blood BLOOD SPECIMEN / Unknown Lab Venipuncture / Unknown 04/29/2016 6:10 AM CDT 04/29/2016 6:31 AM CDT Everardo Weiss MD LAB - HEMATOLOGY ORDERABLES [facility] [address] [place] [id number] * COMPREHENSIVE METABOLIC PANEL (04/29/2016 6:10 AM CDT) Glucose 94 74 - 106 mg/dL 04/29/2016 7:07 AM CDT [facility] Sodium 138 136 - 145 mmol/L 04/29/2016 7:07 AM CDT [facility] Potassium 3.9 3.5 - 5.1 mmol/L 04/29/2016 7:07 AM CDT [facility] Chloride 104 98 - 107 mmol/L 04/29/2016 7:07 AM CDT [facility] CO2 29 22 - 31 mmol/L 04/29/2016 7:07 AM CDT [facility] Calcium 8.8 8.5 - 10.1 mg/dL 04/29/2016 7:07 AM T [facility] Anion Gap 5 5 - 20 mmol/L 04/29/2016 7:07 AM CDT [facility] BUN 14 7 - 21 mg/dL 04/29/2016 7:07 AM CDT [facility] Creatinine 1.00 0.50 - 1.30 mg/dL 04/29/2016 7:07 AM CDT [facility] Alkaline Phosphatase 73 38 - 126 U/L 04/29/2016 7:07 AM CDT [facility] ALT 40 13 - 61 U/L 04/29/2016 7:07 AM CDT [facility] AST 24 5 - 40 U/L 04/29/2016 7:07 AM CDT [facility] Protein Total 8.0 6.4 - 8.2 gm/dL 04/29/2016 7:07 AM CDT [facility] Albumin 3.9 3.4 - 5.0 gm/dL 04/29/2016 7:07 AM CDT [facility] Bilirubin Total 0.8 0.2 - 1.0 mg/dL 04/29/2016 7:07 AM CDT [facility] eGFR by MDRD >60 >60 mL/min/1.7 3m2 04/29/2016 7:07 AM CDT [facility] eGFR by MDRD >60 >60 mL/min/1.7 3m2 04/29/2016 7:07 AM CDT [facility] Blood BLOOD SPECIMEN / Unknown Lab Venipuncture / Unknown 04/29/2016 6:10 AM CDT 04/29/2016 6:31 AM CDT Everardo Weiss MD LAB - CHEMISTRY O RDBEENA Performing Organization Address [facility] Co de Phone Number [facility] [address] [place], [place] [id number] * TSH (04/29/2016 6:10 AM CDT) Pathologist [facility] [place] TSH 1.56 0.358 - 3.740 uIU/mL 04/29/2016 7:07 AM CDT [facility] Blood BLOOD SPECIMEN / Unknown Lab Venipuncture / Unknown 04/29/2016 6:10 AM CDT 04/29/2016 6:31 AM CDT Everardo Weiss MD LAB - CHEMISTRY O RDBEENA Performing Organization Address [facility] de Phone Number [facility] [address] [place], [place] [phone] * T4 TOTAL (04/29/2016 6:10 AM CDT) Pathologist [facility] [place] T4 Total 10.1 4.7 - 13.3 ug/dL 04/29/2016 9:17 AM CDT [facility] Blood BLOOD SPECIMEN / Unknown Lab Venipuncture / Unknown 04/29/2016 6:10 AM CDT 04/29/2016 6:31 AM CDT Everardo Weiss MD LAB - CHEMISTRY O RDERACHERELLE Performing Organization Address [facility] de Phone Number [facility] [address] [place] [id number] * (ABNORMAL) LIPID PROFILE (04/29/2016 6:10 AM CDT) Pathologist [facility] [place] Cholesterol 154 <200 mg/dL 04/29/2016 7:07 AM CDT [facility] Triglycerides 168(H) <150 mg/dL 04/29/2016 7:07 AM CDT [facility] HDL Cholesterol 33(L) >40 mg/dL 04/29/2016 7:07 AM CDT [facility] LDL Calculated 87 <130 mg/dL 04/29/2016 7:07 AM CDT [facility] VLDL Calculated 34(H) <=30 mg/dL 04/29/2016 7:07 AM CDT [facility] Chol HDL Ratio 4.7(H) <4.5 04/29/2016 7:07 AM CDT [facility] LDL/HDL Ratio 2.6 <5.0 04/29/2016 7:07 AM CDT [facility] Blood BLOOD SPECIMEN / Unknown Lab Venipuncture / Unknown 04/29/2016 6:10 AM CDT 04/29/2016 6:31 AM CDT Everardo Weiss MD LAB - CHEMISTRY O RDERABLES Performing Organization Address City/State/[facility] Co de Phone Number [facility] [address] [place] [address] Care Teams Oil Dispenser Relationship Specialty Start Date End Date Jm Oneil MD PCP - General Family Medicine 04/27/16
--- OUTSIDE RECORDS SUMMARY | 2024-07-10 09:27 | XMS_ITS | Clinical Summary ---
Author Organization [facility] Address [address], [facility] [address] [place] [address] Phone Care Team Providers Care Security Incident Response Engineer Name Role Phone Kashif Montgomery MD Unavailable [phone] Jm Oneil MD Primary Care Provider [phone] Allergies Active Allergy Reactions Criticality Noted Date [...] Comments Blood Pressure 120/80 09/02/2016 1:10 PM PUBLIC MESSAGE SERVICE SUPERVISOR Pulse 74 09/02/2016 1:10 PM PUBLIC MESSAGE SERVICE SUPERVISOR Temperature 35.6 ??C (96.1 ??F) 09/02/2016 1:10 PM CS T Respiratory Rate 16 09/02/2016 1:10 PM PUBLIC MESSAGE SERVICE SUPERVISOR Oxygen Saturation 97% 09/02/2016 1:10 PM PUBLIC MESSAGE SERVICE SUPERVISOR Inhaled Oxygen Concentration - - Weight 88.5 kg (195 lb) 08/25/2016 1:00 PM PUBLIC MESSAGE SERVICE SUPERVISOR Height 185.4 cm (6' 1 ) 08/25/2016 1:00 PM PUBLIC MESSAGE SERVICE SUPERVISOR Body Mass Index 25.73 08/25/2016 1:00 PM PUBLIC MESSAGE SERVICE SUPERVISOR Plan of Treatment Health Maintenance Due Date [...] age to complete this topic Care Teams Security Incident Response Engineer Relationship Specialty Start Date End Date Jm Oneil MD [address] [address] PCP - General Family Medicine 08/11/16 Kashif Montgomery MD [address] [address] General Surgery 08/10/16
--- OUTSIDE RECORDS SUMMARY | 2024-07-10 09:27 | XMS_ITS | Referral Summary ---
Author Organization [facility] Address [address] [place] [address] Care Team Providers Care Chief Drafter Name Role Phone Jm Oneil MD Primary Care Provider [phone] Source Comments [facility],non-owned Affiliates and Associated Physician Practices is amultiple site organization consisting of ambulatory clinics and hospital sitesin [place], [place] and [place]. This disclosure is being madepursuant to the Care Everywhere program and may not contain all information available regarding this patient. Last updated 18.[facility] Allergies No known active allergies Medications Be [...] (ABNORMAL) LIPID PROFILE (04/29/2016 6:10 AM CDT) [facility] Cholesterol 154 <200 mg/dL 04/29/2016 7:07 AM CDT [facility] Triglycerides 168(H) <150 mg/dL 04/29/2016 7:07 AM CDT [facility] HDL Cholesterol 33(L) >40 mg/dL 04/29/2016 7:07 AM CDT [facility] LDL Calculated 87 <130 mg/dL 04/29/2016 7:07 AM CDT [facility] VLDL Calculated 34(H) <=30 mg/dL 04/29/2016 7:07 AM CDT [facility] Chol HDL Ratio 4.7(H) <4.5 04/29/2016 7:07 AM CDT [facility] LDL/HDL Ratio 2.6 <5.0 04/29/2016 7:07 AM CDT [facility] Blood BLOOD SPECIMEN / Unknown Lab Venipuncture / Unknown 04/29/2016 6:10 AM CDT 04/29/2016 6:31 AM CDT Everardo Weiss MD LAB - CHEMISTRY O RDERABLES [facility] [address] [place] [address] from Last 3 Months or Most Recently Relevant to Health Maintenance Care Teams Chief Drafter Relationship Specialty Start Date End Date Jm Oneil MD PCP - General Family Medicine 04/27/16
--- OUTSIDE RECORDS SUMMARY | 2024-07-10 09:27 | XMS_ITS | Encounter Summary ---
Author Organization [facility] Address [address] [place] [address] Care Team Providers Care Package Sealer Machine Name Role Phone Jm Oneil MD Primary Care Provider [phone] Reason for Visit * Auth/Cert Specialty Diagnoses / Procedures Referred By Sahil jeong Referred To Contact Diagnoses Abdominal bloating Abdominal bloating Procedures BREATH HYDROGEN TEST Referral ID Status Reason Start Date Expiration Date Visits Re quested Visits Authorized [id number] 1 1 Encounter Details Date Type Department Care Team (Latest Contact Info) Description 04/29/2016 5:50 AM CDT - 04/29/2016 6:11 AM CDT Hospital Encounter [facility] [address] [place] [address] Everardo Weiss MD [address] [place] [address] Discharge Disposition: Home or Self Care Social [...] - 3.740 uIU/mL 04/29/2016 7:[address] [facility] Blood BLOOD SPECIMEN / Unknown Lab Venipuncture / Unknown 04/29/2016 6:10 AM CDT 04/29/2016 6:31 AM CDT Everardo Weiss MD LAB - CHEMISTRY O RDERABLES [facility] [address] [place] [address] * T4 TOTAL (04/29/2016 6:10 AM CDT) T4 Total 10.1 4.7 - 13.3 ug/dL 04/29/2016 9:[address] [facility] Blood BLOOD SPECIMEN / Unknown Lab Venipuncture / Unknown 04/29/2016 6:10 AM CDT 04/29/2016 6:31 AM CDT Everardo Weiss MD LAB - CHEMISTRY O DESI Performing Organization Address [facility] Co de Phone Number [facility] [address] [place] [address] * (ABNORMAL) C-REACTIVE PROTEIN (04/29/2016 6:10 AM CDT) C-Reactive Protein 0.62(H) <0.30 mg/dL 04/29/2016 7:[address] [facility] Blood BLOOD SPECIMEN / Unknown Lab Venipuncture / Unknown 04/29/2016 6:10 AM CDT 04/29/2016 6:31 AM CDT Everardo Weiss MD LAB - CHEMISTRY O DESI Performing Organization Address [facility] de Phone Number [facility] [address] [place] [address] * (ABNORMAL) LIPID PROFILE (04/29/2016 6:10 AM CDT) Cholesterol 154 <200 mg/dL 04/29/2016 7:[address] [facility] Triglycerides 168(H) <150 mg/dL 04/29/2016 7:[address] [facility] HDL Cholesterol 33(L) >40 mg/dL 04/29/2016 7:[address] [facility] LDL Calculated 87 <130 mg/dL 04/29/2016 7:[address] [facility] VLDL Calculated 34(H) <=30 mg/dL 04/29/2016 7:[address] [facility] Chol HDL Ratio 4.7(H) <4.5 04/29/2016 7:[address] [facility] LDL/HDL Ratio 2.6 <5.0 04/29/2016 7:[address] [facility] Blood BLOOD SPECIMEN / Unknown Lab Venipuncture / Unknown 04/29/2016 6:10 AM CDT 04/29/2016 6:31 AM CDT Everardo Weiss MD LAB - CHEMISTRY O RDERABLES [facility] [address] [place] [address] * COMPREHENSIVE METABOLIC PANEL (04/29/2016 6:10 AM CDT) Glucose 94 74 - 106 mg/dL 04/29/2016 7:[address] [facility] Sodium 138 136 - 145 mmol/L 04/29/2016 7:[address] [facility] Potassium 3.9 3.5 - 5.1 mmol/L 04/29/2016 7:[address] [facility] Chloride 104 98 - 107 mmol/L 04/29/2016 7:[address] [facility] CO2 29 22 - 31 mmol/L 04/29/2016 7:07 AM [facility] Calcium 8.8 8.5 - 10.1 mg/dL 04/29/2016 7:07 AM [facility] Anion Gap 5 5 - 20 mmol/L 04/29/2016 7:[address] [facility] BUN 14 7 - 21 mg/dL 04/29/2016 7:07 AM [facility] Creatinine 1.00 0.50 - 1.30 mg/dL 04/29/2016 7:07 AM [facility] Alkaline Phosphatase 73 38 - 126 U/L 04/29/2016 [facility] ALT 40 13 - 61 U/L 04/29/2016 7:[facility] AST 24 5 - 40 U/L 04/29/2016 7:07 AM [facility] Protein Total 8.0 6.4 - 8.2 gm/dL 04/29/2016 7:07 AM [facility] Albumin 3.9 3.4 - 5.0 gm/dL 04/29/2016 7:[address] [facility] Bilirubin Total 0.8 0.2 - 1.0 mg/dL 04/29/2016 7:07 AM [facility] eGFR by MDRD >60 >60 mL/min/1.7 3m2 04/29/2016 7:[address] [facility] eGFR by MDRD >60 >60 mL/min/1.7 3m2 04/29/2016 7:[address] [facility] Blood BLOOD SPECIMEN / Unknown Lab Venipuncture / Unknown 04/29/2016 6:10 AM CDT 04/29/2016 6:31 AM CDT Everardo Weiss MD LAB - CHEMISTRY O RDERABLES Performing Organization Address City/State/[facility] Co de Phone Number [facility] [address] [place] [address] * (ABNORMAL) CBC W AUTO DIFFERENTIAL (04/29/2016 6:10 AM CDT) WBC 8.5 4.4 - 10.7 x10E9/L 04/29/2016 6:[address] [facility] WBC Corrected x10E9/L 04/29/2016 6:[address] [facility] RBC 5.26 3.80 - 5.40 x10E12/L 04/29/2016 6:[address] [facility] Hemoglobin 15.2 12.0 - 17.6 gm/dL 04/29/2016 6:[address] [facility] Hematocrit 45.4 35.2 - 51.7 % 04/29/2016 6:[address] [facility] MCV 86.3 80.7 - 98.3 fl 04/29/2016 6:[address] [facility] MCH 28.9 26.7 - 34.0 pg 04/29/2016 6:[address] [facility] MCHC 33.5 30.8 - 35.9 gm/dL 04/29/2016 6:[address] [facility] Platelet Count 319 153 - 416 x10E9/L 04/29/2016 6:[address] [facility] RDW-CV 12.5 12.1 - 14.9 % 04/29/2016 6:[address] [facility] MPV 10.5 9.4 - 12.9 fl 04/29/2016 6:[address] [facility] Neutrophils % 47.9 44.0 - 73.0 % 04/29/2016 6:[address] [facility] Lymphocytes % 37.2 20.0 - 43.0 % 04/29/2016 6:[address] [facility] Monocytes % 10.7 5.0 - 13.0 % 04/29/2016 6:[address] [facility] Eosinophils % 2.7 0.0 - 6.0 % 04/29/2016 6:[address] [facility] Basophils % 1.1 0.0 - 2.0 % 04/29/2016 6:[address] [facility] Immature Granulocytes 0.4 0 - 1 % 04/29/2016 6:[address] [facility] Neutrophil Absolute 4.07 2.01 - 7.14 x10E9/L 04/29/2016 6:[address] [facility] Lymphocytes Absolute 3.16 1.07 - 3.94 x10E9/L 04/29/2016 6:[address] [facility] Monocytes Absolute 0.91 0.26 - 1.07 x10E9/L 04/29/2016 6:[address] [facility] Eosinophils Absolute 0.23 0 - 0.47 x10E9/L 04/29/2016 6:[address] [facility] Basophils Absolute 0.09(H) 0 - 0.08 x10E9/L 04/29/2016 6:[address] [facility] Immature Granulocytes Absolute 0.03 0.00 - 0.06 x10E9/L 04/29/2016 6:[address] [facility] nRBC Auto 0 /100 WBC 04/29/2016 6:[address] [facility] Blood BLOOD SPECIMEN / Unknown Lab Venipuncture / Unknown 04/29/2016 6:10 AM CDT 04/29/2016 6:31 AM CDT Everardo Weiss MD LAB - HEMATOLOGY ORDERABLES [facility] [address] [place] [address] documented in this encounter Visit Diagnoses Diagnosis Abdominal pain, unspecified location- Primary documented in this encounter Care Teams Package Sealer Machine Relationship Specialty Start Date End Date Jm Oneil MD PCP - General Family Medicine 04/27/16 documented as of this encounter
--- OUTSIDE RECORDS SUMMARY | 2024-07-10 09:27 | XMS_ITS | Encounter Summary ---
Author Organization [facility] Address [address] [facility] [place] [address] Care Team Providers Care Route Salesperson Name Role Phone Jm Oneil MD Primary Care Provider Reason for Visit * Auth/Cert Specialty Diagnoses / Procedures Referred By Sahil jeong Referred To Contact Diagnoses Abdominal bloating Abdominal bloating Procedures BREATH HYDROGEN TEST Referral ID Status Reason Start Date Expiration Date Visits Re quested Visits Authorized [id number] 1 1 Encounter Details Date Type Department Care Team (Late st Contact Info) Description 04/29/2016 6:30 AM CDT - 04/29/2016 7:00 AM CDT Surgery [facility] [address] [place] [id number] Procedure, Nursing G_I BREATH HYDROGEN TEST FOR LACTULOSE Surgery Details Date/Time Status Location OR Service Patient Class Case Class Case Type Trauma Case? 04/29/2016 6:[address] [facility] Gastroenterology Surgery Day [...] pain documented in this encounter Care Teams Route Salesperson Relationship Specialty Start Date End Date Jm Oneil MD PCP - General Family Medicine 04/27/16 documented as of this encounter
--- OUTSIDE RECORDS SUMMARY | 2024-07-10 09:27 | XMS_ITS | Encounter Summary ---
Author Organization [facility] Address [address] [place] [address] Care Team Providers Care Pepper Picker Name Role Phone Jm Oneil MD Primary Care Provider [phone] Reason for Visit * Auth/Cert Specialty Diagnoses / Procedures Referred By Sahil jeong Referred To Contact Diagnoses Abdominal bloating Abdominal bloating Procedures BREATH HYDROGEN TEST Referral ID Status Reason Start Date Expiration Date Visits Re quested Visits Authorized [id number] 1 1 Encounter Details Date Type Department Care Team (Latest Contact Info) Description 04/29/2016 6:12 AM CDT - 04/29/2016 9:36 AM CDT Hospital Encounter [facility] - Endoscopy [facility] [address] [place] [address] Silvia Spencer MD [facility] [place] [id number] Surgery General Discharge Disposition: Home or Self [...] on filedocumented in this encounter Care Teams Pepper Picker Relationship Specialty Start Date End Date Jm Oneil MD PCP - General Family Medicine 04/27/16 documented as of this encounter
--- OUTSIDE RECORDS SUMMARY | 2024-07-10 09:27 | XMS_ITS | Clinical Summary ---
Author Organization [facility] [employer] Address [address] [place] [address] Care Team Providers Care Fruit Stuffer Name Role Phone Jm Oneil MD Primary Care Provider [phone] Source Comments [facility] [employer],[facility] Affiliates and Associated Physician Practices is amultiple site organization consisting of ambulatory clinics and hospital sitesin [place], [place], [place] and [place]. This disclosure is being madepursuant to the Care Everywhere program and may not contain all information available regarding this patient. Last updated 18.[employer] Allergies No known active allergies Medications Be [...] (ABNORMAL) LIPID PROFILE (04/29/2016 6:10 AM CDT) [facility] Cholesterol 154 <200 mg/dL 04/29/2016 7:07 AM CDT [facility] Triglycerides 168(H) <150 mg/dL 04/29/2016 7:07 AM CDT [facility] HDL Cholesterol 33(L) >40 mg/dL 04/29/2016 7:07 AM CDT [facility] LDL Calculated 87 <130 mg/dL 04/29/2016 7:07 AM CDT [facility] VLDL Calculated 34(H) <=30 mg/dL 04/29/2016 7:07 AM CDT [facility] Chol HDL Ratio 4.7(H) <4.5 04/29/2016 7:07 AM CDT [facility] LDL/HDL Ratio 2.6 <5.0 04/29/2016 7:07 AM CDT [facility] Blood BLOOD SPECIMEN / Unknown Lab Venipuncture / Unknown 04/29/2016 6:10 AM CDT 04/29/2016 6:31 AM CDT Everardo Weiss MD LAB - CHEMISTRY O RDERABLES [facility] [address] [place] [address] from Last 3 Months or Most Recently Relevant to Health Maintenance Care Teams Fruit Stuffer Relationship Specialty Start Date End Date Jm Oneil MD PCP - General Family Medicine 04/27/16
== END 2024-07-06 13:23 | disposition home or self-care (01) ==
PROVIDERS: Emergency Provider Emergency Medicine; PCP Family Medicine
DX: L02.416 Cutaneous abscess of left lower limb (principal); L03.116 Cellulitis of left lower limb
CPT/HCPCS: 99283; A9270